=== PATIENT | female | born 1965 | race Asian ===

== ENCOUNTER → 2018-01-18 | Outpatient (CLI) | payer OTHER | LOC: FIMAGING 11:06 | PROVIDERS: ATTEND Obstetrics & Gynecology Gynecology | DX: Z12.31 Encounter for screening mammogram for malignant neoplasm of breast (principal) ==

== ENCOUNTER → 2018-04-18 | Outpatient (CLI) | payer OTHER ==
--- NOTE | 2018-04-18 16:00 | ECHO ---
[email or web address] [address] [address] Main: [phone] Fax: Transthoracic Echocardiogram Name: ALFONSO LOPEZ MR#: [id number] Study Date: 04/18/2018 Study Time: 02:06 PM Date of : 1965 Age: 52 year(s) Height: 170.2 cm (67 in.) Weight: 54.43 kg (120 lb.) BSA: 1.63 m2 Gender: Female Examination: Echo Indication: PVC, Palpitations Image Quality: Adequate Contrast: Requested by: Royal Mack BP: 107 mmHg/70 mmHg Heart Rate: Rhythm: Indication: PVC, Palpitations Procedure Staff Import/Export Clerk: Aracely Mcmanus RDCS Reading Physician: Jj Hyde MD Requesting Provider: Conclusions: Normal size left ventricle. Normal global systolic LV function. EF is 57 %. No regional wall motion abnormality. Normal diastolic LV function. Mild mitral valve regurgitation is present. Mild to moderate tricuspid valve regurgitation. The pulmonary artery pressure is normal. Measurements: Chambers Valvular Assessment AV/MV Valvular Assessment TV/PV Normal Normal Normal Name Value Range Name Value Range Name Value Range Ao Fiona (2D): 2.8 cm (1.4 cm-2.6 AV Vmax: 0.92 m/s (1 m/s-1.7 TR Vmax: 2.59 mm/s ( - ) cm) m/s) TR PGmax: 27 mmHg ( - ) IVSd (2D): 0.6 cm (0.6 cm-1.1 AV maxP mmHg ( - ) syst. PAP: 32 mmHg ( - ) cm) AV meanP mmHg ( - ) PV Vmax: 0.71 m/s (0.6 m/s-0.9 LVDd (2D): 3.9 cm (3.9 cm-5.3 LVOT Vmax: 0.66 m/s (0.7 m/s-1.1 m/s) cm) m/s) PV PGmax: 2 mmHg ( - ) LVDs (2D): 2.2 cm (2.1 cm-4 GENNARO (Vmax): 1.8 cm2 ( - ) cm) GENNARO (VTI): 1.7 cm ( - ) LVPWd (2D): 0.6 cm ( - ) MV E Vmax: 1.01 m/s ( - ) LVOTd 1.8 cm 1.8 cm mm MV A Vmax: 0.40 m/s ( - ) LVEF (BP): 57 % (>=55 %) MV E/A: 2.52 ( - ) RVDd(2D): 1.8 cm (1.9 cm-3.8 MV PHT: 0.059 s ( - ) cmmm) MVA (PHT): 3.7 s ( - ) Continued Measurements: Chambers Valvular Assessment AV/MV Valvular Assessment TV/PV Patient: ALFONSO LOPEZ Study Date: 04/18/2018 Page 1 of 2 02:06 PM Name Value Name Value Name Value LADs: 2.1 cm MV DecTime: 225 m/s CVP (est.): 5 mmHg LADs Lon.3 cm MV E' Septal: 0.11 m/s LA Area: 10.1 cm2 MV E/E' Septal: 8.90 LA Volume: 21 ml MV E/E' Lateral: 9.10 LA Volume Index: 12.9 ml/m2 RA Area: 10.5 cm2 Additional Vessels Name Value Ao Ascendin.8 cm Inferior Vena Cava: 2.3 cm Findings: Left Ventricle: Normal size left ventricle. No LV hypertrophy. Normal global systolic LV function. EF is 57 %. No regional wall motion abnormality. Normal diastolic LV function. Right Ventricle: Normal size right ventricle. Normal RV function. Left Atrium: The left atrium is normal in size. Right Atrium: The right atrium is normal in size. Mitral Valve: The mitral valve is normal in appearance and function. Mild mitral valve regurgitation is present. No mitral stenosis is present. Aortic Valve: The aortic valve is normal in appearance and function. There is no significant aortic valve regurgitation. No aortic valve stenosis is present. Tricuspid Valve: The tricuspid valve is normal in appearance and function. Mild to moderate tricuspid valve regurgitation. The pulmonary artery pressure is normal. Right ventricular systolic pressure measures 32mmHg. Pulmonic Valve: The pulmonic valve is normal in appearance and function. There is no pulmonic regurgitation seen. Aorta: The aorta is normal. Normal size aortic root measuring 2.8 cm. Normal size ascending aorta measuring 2.8 cm. IVC: The IVC is dilated. Pericardium: No pericardial effusion. No pleural effusion. Exam Comments: Technically difficult apical imaging, patient very thin. (No Signature Object) Patient: ALFONSO LOPEZ Study Date: 04/18/2018 Page 2 of 2 02:06 PM [id number]
== END ==
LOC: FCP 13:55
PROVIDERS: ATTEND Internal Medicine Cardiovascular Disease
DX: R00.2 Palpitations (principal); I49.3 Ventricular premature depolarization

== ENCOUNTER → 2019-01-23 | Outpatient (CLI) | payer OTHER | LOC: FIMAGING 09:54 | PROVIDERS: ATTEND Obstetrics & Gynecology Gynecology | DX: Z12.31 Encounter for screening mammogram for malignant neoplasm of breast (principal) ==